=== PATIENT | male | born 1960 | race Caucasian/White ===

== ENCOUNTER 2024-01-29 18:40 | Inpatient (IN) | payer SELFPAY ==
[2024-01-29] VITALS (8 sets, daily range): BP systolic 140–148; BP diastolic 70–95; PULSE 70–81; RESP 20; TEMP 97.9–98.7; O2SAT 95
[~2024-01-29] VITALS: Ht 172.7 cm; Wt 87.1 kg
[2024-01-29] MEDS ORDERED: SODIUM BICARB 50MEQ 50ML VIAL 50 ML ONE (18:49)
[2024-01-29] MEDS ORDERED: IOHEXOL-350 50ML VIAL IV ONE (18:49)
[2024-01-29] MEDS ORDERED: BIVALIRUDIN 250 MG/VIAL IV ONE (18:49)
[2024-01-29] MEDS ORDERED: IOHEXOL 350 MG/ML 100ML INFUS..BTL IV ONE (18:49)
--- NOTE | 2024-01-29 18:49 | NUR ---
DR. BATRES IN TO SEE PT WITH CORPORATE SALES TRAINER
[2024-01-29] MEDS: HEParin 1,000 UNIT VIAL IVP SCH (18:50)
[2024-01-29] MEDS: TICAGrelor 90 MG TABLET PO SCH (18:50)
[2024-01-29] MEDS: HEParin 25,000 UNITS/250ML D5W 250 ML IV SCH ×2 (18:50→20:10)
[2024-01-29] MEDS ORDERED: HEParin 10,000 UNIT/10ML (1,000 UNIT/ML) VIAL ONE (18:50)
[2024-01-29] MEDS ORDERED: ATROPINE 0.4MG VIAL IJ ONE (18:50)
[2024-01-29] MEDS ORDERED: HEParin-NS 1,000 UNIT/500 ML 1,000 ML IV ONE (18:51)
[2024-01-29] MEDS ORDERED: ATROPINE 1MG SYG IVP ONE (18:51)
[2024-01-29] MEDS ORDERED: DOPamine HCL 400 MG/D5%-WATER 0 ML IV ONE (18:51)
[2024-01-29] MEDS ORDERED: NITROGLYCERIN 50MG VIAL ONE (18:52)
[2024-01-29] MEDS ORDERED: FENTanyl CITRate PF 50 MCG/1 ML 2ML VIAL ONE (18:52)
[2024-01-29] MEDS ORDERED: MIDAZOLAM HCL 1 MG/ML 2ML VIAL ONE (18:52)
[2024-01-29] MEDS ORDERED: niCARDIpine 25MG INJ IV ONE (18:54)
[2024-01-29 18:55] LABS: BASOPHILS # (AUTO) 0.11 K/uL (0.00-0.20); BASOPHILS % (AUTO) 0.6 % (0.0-5.0); EOSINOPHILS # (AUTO) 0.37 K/uL (0.00-0.70); EOSINOPHILS % (AUTO) 1.9 % (0.0-8.0); HEMATOCRIT 47.1 % (42-54); IMMATURE GRANULOCYTE ABSOLUTE 0.06 K/uL (0-1); LYMPHOCYTES # (AUTO) 2.8 K/uL (1.0-4.8); LYMPHOCYTES % (AUTO) 14.3 % (21.0-51.0); MEAN CORPUSCULAR HEMOGLOBIN 30.7 pg (27.0-33.0); MEAN CORPUSCULAR HGB CONC 34.6 g/dL (32.0-36.0); MEAN CORPUSCULAR VOLUME 88.7 fL (79-99); MONOCYTES % (AUTO) 5.3 % (3.0-13.0); NEUTROPHILS # (AUTO) 14.9 K/uL (1.8-7.7); NEUTROPHILS % (AUTO) 77.6 % (40.0-77.0); PLATELET COUNT (AUTO) 187 K/uL (130-400); RED BLOOD CELL COUNT(AUTO) 5.31 MIL/uL (4.50-6.20); RED CELL DISTRIBUTION WIDTH 12.5 % (11.0-15.5); WHITE BLOOD COUNT (AUTO) 19.2 K/uL (4.8-10.8)
[2024-01-29] MEDS: TICAGrelor 90 MG TABLET ONE (18:58)
--- NOTE | 2024-01-29 18:58 | NUR ---
PT TAKEN TO BOOK CLEANER
--- NOTE | 2024-01-29 18:59 | ERN ---
General Chief Complaint: Chest Pain Stated Complaint: CP Time Seen by MD: 18:42 Source: patient, EMS History of Present Illness Initial Comments PATIENT IS A 63-YEAR-OLD MALE COMING IN TO BE EVALUATED FOR CHEST PRESSURE CHEST PAIN. PER PATIENT THE CHEST PAIN HAS BEEN ONGOING FOR FIVE DAYS. PATIENT INITIALLY THOUGHT HE MIGHT HAVE REFLUX SINCE HE USUALLY PRESENTS WITH GASTRITIS. HE STATES THAT EARLIER TODAY HE PRESENTED WITH THE PAIN ABOU 5 HOURS PRIOR TO ARRIVING AT THE ER. PATIENT DID RECEIVE ASPIRIN AND SUBLINGUAL NITROGLYCERIN HIS PAIN LEVEL IN TRIAGE IT WAS TOO. Allergies: Coded Allergies: No Known Drug Allergies (Unverified Allergy, Unknown, 01/29/24) Past Medical History Past Medical History: Hypertension Past Surgical History: None ROS Dictation CONSTITUTIONAL: NO CHILLS, NO FEVER, NO WEAKNESS, DIAPHORESIS, NO MALAISE. HEAD/FACE: NO SIGNS OF TRAUMA. EENT: NO EYE PAIN, NO BLURRED VISION, NO TEARING, NO DOUBLE VISION, NO EAR PAIN, NO EAR DISCHARGE, NO NOSE PAIN, NO NASAL CONGESTION, NO THROAT PAIN, NO THROAT SWELLING, NO MOUTH PAIN. RESPIRATORY: NO COUGH, NO ORTHOPNEA, NO SOB, NO STRIDOR, NO WHEEZING. CARDIOVASCULAR: NO CHEST PAIN, NO EDEMA, NO PALPITATIONS, NO SYNCOPE. GASTROINTESTINAL/ABDOMINAL: NO ABDOMINAL PAIN, NO CONSTIPATION, NO DIARRHEA, NO NAUSEA, NO VOMITING. GENITOURINARY: NO ABNORMAL DISCHARGE, NO DYSURIA, NO FREQUENT URINATION, NO HEMATURIA. NO COMPLAINTS OF PAIN IN THE GENITALS. MUSCULOSKELETAL: NO BACK PAIN, NO GOUT, NO JOINT PAIN, NO JOINT SWELLING, NO MUSCLE PAIN, NO MUSCLE STIFFNESS, NO NECK PAIN. INTEGUMENTARY: NO CHANGE IN COLOR, NO CHANGE IN HAIR/NAILS, NO DRYNESS, NO LESION, NO LUMPS, NO RASH. NEUROLOGICAL/PSYCH: NO ANXIETY, NOT DEPRESSED, NO EMOTIONAL PROBLEM, NO HEADACHE, NO NUMBNESS, NO PRE-EXISTING DEFICIT, NO HISTORY OF SEIZURES, NO TREMORS, NO WEAKNESS. HEMATOLOGIC/LYMPHATIC: NOT ANEMIC, NO HISTORY OF BLOOD CLOTS, NO APPARENT BLEEDING, NO BRUISING, GLANDS NOT SWOLLEN. ALL SYSTEMS NEGATIVE, EXCEPT NOTED. Physical Exam Physical Exam Dictation VITAL SIGNS: REVIEWED. GENERAL APPEARANCE: ALERT, ORIENTED X3, ACUTE DISTRESS, OBESE. HEAD AND FACE: NON-TRAUMATIC. EYES: PERRL, PINK CONJUNCTIVAS, EYELID NO TRAUMA, ANTERIOR CHAMBER CLEAR. EARS: PINNAS INTACT AND NO SIGNS OF TRAUMA OR ERYTHEMA. EAR CANALS CLEAR AND NO DISCHARGE. TMS NO ERYTHEMA. NOSE: NO DISCHARGE, NO BLEEDING. OROPHARYNX: MOUTH NORMAL, TEETH NO CARIES, TONGUE PINK. PHARYNX CLEAR, NO ERYTHEMA. TONSILS NO EXUDATES, NO ABSCESSES NOTED. MUCOUS MEMBRANE MOIST. NECK: SUPPLE, NON-TENDER, NO THYROMEGALY, NO MASSES, NO JVD, NO BRUITS. BREAST: DEFERRED. CHEST: NO TENDERNESS, NO CREPITUS, NO PARADOXICAL MOVEMENT, NO RETRACTIONS. LUNGS: CLEAR, WELL-VENTILATED, SYMMETRIC, NO RALES, NO WHEEZING, NO RHONCHI, NO STRIDOR, GOOD BREATH SOUNDS BILATERALLY. HEART: REGULAR RATE, REGULAR RHYTHM, NO MURMUR, NO GALLOPS. VASCULAR: NO PERIPHERAL EDEMA. ABDOMEN: SOFT, POSITIVE BOWEL SOUNDS, NONDISTENDED, NO GUARDING, NONTENDER, NO REBOUND, NO MASSES NO HEPATOMEGALY, NO SPLENOMEGALY, NO YANG'S SIGN, NO HERNIAS. RECTAL: DEFERRED. GENITAL: DEFERRED. NEUROLOGICAL: NORMAL SPEECH, GROSS MOTOR FUNCTION INTACT, GROSS SENSORY FUNCTION INTACT. MUSCULOSKELETAL: NECK NONTENDER, FULL RANGE OF MOTION, BACK NONTENDER, FULL RANGE OF MOTION. EXTREMITIES: NONTENDER, FULL RANGE OF MOTION. SKIN: COLOR PINK, DRY, NO TURGOR, NO RASH, NO LACERATIONS, NO ABRASIONS, NO CONTUSIONS. LYMPHATICS: DEFERRED. Results Laboratory and Microbiology Lab and Micro Result Laboratory Tests Test 01/29/24 18:48 White Blood Count 19.2 K/uL (4.8-10.8) H Red Blood Count 5.31 MIL/uL (4.50-6.20) Hemoglobin 16.3 g/dL (14.0-18.0) Hematocrit 47.1 % (42-54) Mean Corpuscular Volume 88.7 fL (79-99) Mean Corpuscular Hemoglobin 30.7 pg (27.0-33.0) Mean Corpuscular Hemoglobin Concent 34.6 g/dL (32.0-36.0) Red Cell Distribution Width 12.5 % (11.0-15.5) Platelet Count 187 K/uL (130-400) Mean Platelet Volume 10.1 fL (7.5-10.5) Immature Granulocyte % (Auto) 0.3 % (0-1) Neutrophils (%) (Auto) 77.6 % (40.0-77.0) H Lymphocytes (%) (Auto) 14.3 % (21.0-51.0) L Monocytes (%) (Auto) 5.3 % (3.0-13.0) Eosinophils (%) (Auto) 1.9 % (0.0-8.0) Basophils (%) (Auto) 0.6 % (0.0-5.0) Neutrophils # (Auto) 14.9 K/uL (1.8-7.7) H Lymphocytes # (Auto) 2.8 K/uL (1.0-4.8) Monocytes # (Auto) 1.0 K/uL (0.1-1.0) Eosinophils # (Auto) 0.37 K/uL (0.00-0.70) Basophils # (Auto) 0.11 K/uL (0.00-0.20) Absolute Immature Granulocyte (auto 0.06 K/uL (0-1) Nucleated Red Blood Cells 0.0 % (0.0-0.19) Labs Reviewed?: Yes EKG/XRAY/US/CT/MRI EKG Comment 01/29/2024 TIME 6:40 P.M. VENTRICULAR RATE [address] WAVE ELEVATION V4 V5 V3, ST WAVE ELEVATION IN LEAD ONE AND AVL RECIPROCAL CHANGES IN AVR MDM MDM: DIFFERENTIAL DIAGNOSIS: STEMI, NSTEMI, CHEST PAIN RATIONALE: TESTS CONSIDERED AND ORDERED SECONDARY TO SHARED DECISION MAKING INCLUDE: LABS, ECG AND RADIOLOGY PREVIOUS OUTSIDE RECORDS REVIEWED: OLD ER VISITS. RISK OF COMPLICATION AND/OR MORBIDITY OR MORTALITY OF PATIENT MANAGEMENT: NONE MEDICATIONS-PER MEDICATION RECONCILIATION NEED FOR HOSPITALIZATION: PATIENT DOES MEET CRITERIA FOR HOSPITALIZATION. NEED FOR EMERGENCY MAJOR/MINOR SURGERY: NO THERE ARE NO SOCIAL CONCERNS WITH THIS PATIENT. PRESCRIPTION DRUG MANAGEMENT PRESCRIPTIONS WILL INCLUDE SYMPTOMATIC CARE PATIENT'S PRIOR EXTERNAL MEDICAL RECORDS FROM OTHER ER VISITS WERE REVIEWED BY ME INDICATED. PRIOR TESTING AND RESULTS FROM PREVIOUS VISITS WERE REVIEWED. PRIOR TESTS WERE TAKEN INTO ACCOUNT WITH MEDICAL DECISION MAKING AND RESOURCE UTILIZATION, INDEPENDENT HISTORIAN/HISTORIANS WERE USED TO OBTAIN COMPLETE MEDICAL HISTORY. I INDEPENDENTLY INTERPRETED THE TEST THAT WERE PERFORMED, RESULTS WERE REVIEWED BY ME AND CONSIDERED FINDINGS ON RADIOLOGY IF ORDERED. MEDICAL MANAGEMENT AND EXAMINATION INTERPRETATION DISCUSSIONS WERE HAD BY ME WITH OTHER QUALIFIED HEALTHCARE PROFESSIONALS INDICATED FOR THE PATIENT'S CARE. PATIENT IS A 63-YEAR-OLD MALE COMING IN TO BE EVALUATED FOR CHEST PRESSURE CHEST PAIN. UPON EVALUATION IN TRIAGE PATIENT DID PRESENT WITH A ST WAVE CHANGES IN EKG, A STEMI ALERT WAS CALLED. PATIENT WAS TAKEN TO THE DEMURRAGE AGENT WE WILL BE ADMITTED UNDER THE CARE OF HOSPITALIST GROUP FOR ONGOING MANAGEMENT AFTER DEMURRAGE AGENT. ED Course Orders Procedure Category Date Status Time Vital Signs Per CPOE 01/29/24 Transmitted Routine 18:41 B-Type Natriuretic LAB 01/29/24 In Process Peptide 18:41 Chest 1vw RAD 01/29/24 Logged 18:41 12 Lead Ekg Tracing- EKG 01/29/24 Logged Technical 18:41 Oxygen By Nc/Pulse Ox CPOE 01/29/24 Transmitted 18:41 Maintain Iv CPOE 01/29/24 Transmitted 18:41 Iv Insertion CPOE 01/29/24 Transmitted 18:41 Cardiac Monitoring CPOE 01/29/24 Transmitted 18:41 Pulse Oximetry With CPOE 01/29/24 Transmitted Vs And Prn 18:41 Cbc With Differential LAB 01/29/24 In Process 18:41 Activity: Br W/Brp CPOE 01/29/24 Transmitted With Assist 18:41 Creatine Kinase, Total LAB 01/29/24 In Process 18:41 Urinalysis Profile LAB 01/29/24 Logged 18:41 Troponin Poc Order LAB 01/29/24 Logged Only 18:41 Bedside Troponin-I LAB.ER 01/29/24 In Process (Poc) 18:41 Basic Metabolic Panel LAB 01/29/24 In Process 18:41 Heparin 5,000 Unit PHA 01/29/24 Complete Vial (Heparin 5,000 U 19:00 Heparin 25,000 PHA 01/29/24 In Process Units/250ml D5w 19:00 Nitroglycerin PHA 01/29/24 In Process 50mg/D5w 250ml 19:00 Vermin Exterminator Procedure CATH 01/29/24 Logged Request Sodium Bicarb 50meq PHA 01/29/24 Complete 50ml Vial (Sodium Bi 18:49 Bivalirudin (Angiomax) PHA 01/29/24 Complete 18:49 Iohexol (Omnipaque) PHA 01/29/24 Complete 18:49 Ticagrelor (Brilinta) PHA 01/29/24 Complete 18:49 Iohexol (Omnipaque) PHA 01/29/24 Complete 18:49 Atropine 0.4mg Vial PHA 01/29/24 Complete (Atropine 0.4mg Vial 18:50 Heparin 10,000 PHA 01/29/24 Complete Unit/10ml (Heparin 18:50 Dopamine Hcl 400 PHA 01/29/24 Complete Mg/D5%-Water (Intropin 18:51 Heparin-Ns 1,000 PHA 01/29/24 Complete Unit/500 Ml 18:51 Atropine 1mg Syg PHA 01/29/24 Complete (Atropine 1mg Syg) 18:51 Nitroglycerin 50mg PHA 01/29/24 Complete Vial (Tridil 50mg/10m 18:52 Fentanyl Citrate Pf PHA 01/29/24 Complete 0.05 Mg/Ml (Fentanyl 18:52 Midazolam Hcl (Versed) PHA 01/29/24 Complete 18:52 Ticagrelor (Brilinta) PHA 01/29/24 In Process 19:00 Heparin 1,000 Unit PHA 01/29/24 In Process Vial (Heparin 1,000 U 19:00 Initiate Heparin JANICE 01/29/24 In Process Treatment Pro 18:51 Partial LAB 01/29/24 Logged Thromboplastin Time 18:51 Heparin 5,000 Unit PHA 01/29/24 In Process Vial (Heparin 5,000 U 20:00 Heparin 25,000 PHA 01/29/24 In Process Units/250ml D5w 20:00 Heparin Protocol CPOE 01/29/24 Transmitted Monitoring 18:51 Nitroglycerin PHA 01/29/24 In Process 50mg/D5w 250ml 19:00 Nicardipine 25mg Inj PHA 01/29/24 Complete (Cardene 25mg Inj) 18:54 Current Medications Medications (Trade) Dose Ordered Sig/Ramila Route PRN Reason Start Time Stop Time Status Last Admin Dose Admin Atropine Sulfate (Atropine 0.4mg Vial) 0.4 mg STK-MED ONCE IJ 01/29/24 18:50 01/29/24 18:50 DC Atropine Sulfate (Atropine 1mg Syg) 1 mg STK-MED ONCE IVP 01/29/24 18:51 01/29/24 18:52 DC Bivalirudin (Angiomax) 250 mg STK-MED ONCE IV 01/29/24 18:49 01/29/24 18:50 DC Dopamine HCl/ Dextrose 250 ml @ As Directed STK-MED ONCE IV 01/29/24 18:51 01/29/24 18:51 DC Fentanyl Citrate (FENTanyl CITRate PF 50 MCG/ 1 ML 2ML VIAL) 100 mcg STK-MED ONCE .ROUTE 01/29/24 18:52 01/29/24 18:52 DC Heparin Sodium (Porcine) (HEParin 1,000 UNIT VIAL) 7,000 unit ONCE IVP 01/29/24 19:00 02/28/24 18:59 01/29/24 18:50 Heparin Sodium (Porcine) (HEParin 10,000 UNIT/10ML) 10,000 unit STK-MED ONCE .ROUTE 01/29/24 18:50 01/29/24 18:50 DC Heparin Sodium (Porcine) (HEParin 5,000 UNIT VIAL) *calculation based on ACTUAL B... AD PRN IV HEPARIN PROTOCOL 01/29/24 20:00 02/28/24 19:59 Heparin Sodium (Porcine) (HEParin 5,000 UNIT VIAL) 5,000 unit ONCE ONCE IV 01/29/24 19:00 01/29/24 19:01 DC Heparin Sodium/ Dextrose 250 ml @ 0 mls/hr PROTOCOL IV 01/29/24 19:00 02/28/24 18:59 01/29/24 18:50 Heparin Sodium/ Dextrose 250 ml @ 0 mls/hr Q6H IV 01/29/24 20:00 02/28/24 19:59 Heparin Sodium/ Sodium Chloride 1,000 ml @ As Directed STK-MED ONCE IV 01/29/24 18:51 01/29/24 18:51 DC Iohexol (Omnipaque) 50 ml STK-MED ONCE IV 01/29/24 18:49 01/29/24 18:50 DC Iohexol (Omnipaque) 35,000 mg STK-MED ONCE IV 01/29/24 18:49 01/29/24 18:50 DC Midazolam HCl (Versed) 2 mg STK-MED ONCE .ROUTE 01/29/24 18:52 01/29/24 18:53 DC Nicardipine HCl (CarDENE 25MG INJ) 25 mg STK-MED ONCE IV 01/29/24 18:54 01/29/24 18:54 DC Nitroglycerin (Tridil 50mg/ 10ml) 50 mg STK-MED ONCE .ROUTE 01/29/24 18:52 01/29/24 18:52 DC Nitroglycerin/ Dextrose 250 ml @ 0 mls/hr PROTOCOL IV 01/29/24 19:00 02/28/24 18:59 Nitroglycerin/ Dextrose 250 ml @ 0 mls/hr PROTOCOL IV 01/29/24 19:00 02/28/24 18:59 Sodium Bicarbonate 50 ml @ As Directed STK-MED ONCE .ROUTE 01/29/24 18:49 01/29/24 18:49 DC Ticagrelor (BRILinta) 90 mg STK-MED ONCE .ROUTE 01/29/24 18:49 01/29/24 18:50 DC Ticagrelor (BRILinta) 180 mg ONCE PO 01/29/24 19:00 02/28/24 18:59 01/29/24 18:50 Vital Signs Date Time Temp Pulse Resp B/P (MAP) Pulse Ox O2 Delivery O2 Flow Rate FiO2 01/29/24 18:42 98.1 83 18 151/92 94 Nasal Cannula 4.0 Critical Care Note Comments CRITICAL CARE PROCEDURE NOTE AUTHORIZED AND PERFORMED BY: ME TOTAL CRITICAL CARE TIME: APPROXIMATELY 36 MINUTES DUE TO A HIGH PROBABILITY OF CLINICALLY SIGNIFICANT, LIFE THREATENING DETERIORATION, THE PATIENT REQUIRED MY HIGHEST LEVEL OF PREPAREDNESS TO INTERVENE EMERGENTLY AND I PERSONALLY SPENT THIS CRITICAL CARE TIME DIRECTLY AND PERSONALLY MANAGING THE PATIENT. THIS CRITICAL CARE TIME INCLUDED OBTAINING A HISTORY; EXAMINING THE PATIENT; PULSE OXIMETRY; ORDERING AND REVIEW OF STUDIES; ARRANGING URGENT TREATMENT WITH DEVELOPMENT OF A MANAGEMENT PLAN; EVALUATION OF PATIENT'S RESPONSE TO TREATMENT; FREQUENT REASSESSMENT; AND, DISCUSSIONS WITH OTHER PROVIDERS. THIS CRITICAL CARE TIME WAS PERFORMED TO ASSESS AND MANAGE THE HIGH PROBABILITY OF IMMINENT, LIFE-THREATENING DETERIORATION THAT COULD RESULT IN MULTI-ORGAN FAILURE. IT WAS EXCLUSIVE OF SEPARATELY BILLABLE PROCEDURES AND TREATING OTHER PATIENTS AND TEACHING TIME. PLEASE SEE MDM SECTION AND THE REST OF THE NOTE FOR FURTHER INFORMATION ON PATIENT ASSESSMENT AND TREATMENT. DX & DISP Disposition: Inpatient Decision to Admit Time: 19:03 Departure Impression: Primary Impression: STEMI (ST elevation myocardial infarction) Condition: Stable Referrals: SELF,REFERRAL (PCP) BABAK TRAYLOR MD Jan 29, 2024 18:59
[2024-01-29] MEDS ORDERED: NITROGLYCERIN 50MG/D5W 250ML 250 BOT IV SCH ×2 (19:00)
[2024-01-29 19:04] LABS: CREATININE 1.1 mg/dL (0.5-1.3); POTASSIUM 4.4 mmol/L (3.5-5.1)
--- NOTE | 2024-01-29 19:13 | CONS ---
[facility] CARDIOLOGY CONSULTATION NOTE Date Patient Seen: Jan 29, 2024 Time of Visit: 19:10 Requesting Physician: [ ] Reason for Consultation: [ ] History of Present Illness: [Four two days the patient experienced what he thought was heartburn in the retrosternal area which did not respond well to antacids. Symptoms waxed and waned and last evening he became a little bit diaphoretic. He went to bed in the symptoms pass but the today they recurred. He presents to the ER 5 hours into a continuous episode of chest discomfort with ST elevation across the precordium and in the high lateral leads. ] Past Medical History: [Five years treatment for hypertension, denies all other illnesses ] Past Surgical History: [ None] Family History: [Noncontributory ] Social History: [Noncontributory nonsmoker ] Habits: [Never] smoker. [Denies] alcohol consumption. [Denies] illicit drug use Home Meds: [ ] Current Meds: [ ] Review of Systems: CONST: [No fever, fatigue, or weight changes. Admits diaphoresis with chest pain] EYES: [No recent vision problems.] ENT: [No congestion, ear pain, or sore throat.] C/V: [Admits chest pain, denies palpitations, or edema.] RESP: [No cough, congestion, wheezing or shortness of breath.] GI: [No abdominal pain, nausea, vomiting, constipation, or diarrhea. Past history of dyspepsia. No history of GI bleeding, polyps, or malignancies.] : [No incontinence or dysuria. Denies hematuria.] SKIN: [No rash.] NEURO: [No headache, focal numbness or weakness, dizziness, or seizures.] PSYCH: [No depression or anxiety.] HEME: [No abnormal bruising or bleeding.] LYMPH: [No swollen glands.] Physical Examination: GENERAL: [No acute distress.] HEAD: [Normal with no signs of head trauma.] EYES: [PERRLA, EOMI, conjunctiva and sclera normal.] ENT: [Hearing grossly intact, normal oropharynx.] NECK: [Supple without JVD. There is no tenderness, lymphadenopathy, or masses. No thyromegaly. Normal carotid upstrokes without bruits.] LUNGS: [Clear breath sounds bilaterally. There are right basilar rales one third of the way up the chest. No wheezes, or rhonchi.] HEART: [Normal rate and rhythm. Normal S1 and S2 without mumurs, gallop or rub.] VASC: [Peripheral pulses +2 bilaterally.] ABD: [Bowel sounds normal, soft, nontender, no masses, no organomegaly. No audible bruits.] : [Not examined] LYMPH: [No lymphadenopathy noted.] EXT: [No clubbing, cyanosis or edema.] SKIN: [No rashes or lesions noted.] NEURO: [Awake, alert, and oriented x3. No focal sensory or strength deficits noted.] Vital Signs (last 8hr) Date Time Temp Pulse Resp B/P (MAP) Pulse Ox O2 Delivery O2 Flow Rate FiO2 01/29/24 18:42 98.1 83 18 151/92 94 Nasal Cannula 4.0 Laboratory: [ ] Hematology Labs: Test 01/29/24 18:48 Range/Units White Blood Count 19.2 H 4.8-10.8 K/uL Red Blood Count 5.31 4.50-6.20 MIL/uL Hemoglobin 16.3 14.0-18.0 g/dL Hematocrit 47.1 42-54 % Mean Corpuscular Volume 88.7 79-99 fL Mean Corpuscular Hemoglobin 30.7 27.0-33.0 pg Mean Corpuscular Hemoglobin Concent 34.6 32.0-36.0 g/dL Red Cell Distribution Width 12.5 11.0-15.5 % Platelet Count 187 130-400 K/uL Mean Platelet Volume 10.1 7.5-10.5 fL Immature Granulocyte % (Auto) 0.3 0-1 % Neutrophils (%) (Auto) 77.6 H 40.0-77.0 % Lymphocytes (%) (Auto) 14.3 L 21.0-51.0 % Monocytes (%) (Auto) 5.3 3.0-13.0 % Eosinophils (%) (Auto) 1.9 0.0-8.0 % Basophils (%) (Auto) 0.6 0.0-5.0 % Neutrophils # (Auto) 14.9 H 1.8-7.7 K/uL Lymphocytes # (Auto) 2.8 1.0-4.8 K/uL Monocytes # (Auto) 1.0 0.1-1.0 K/uL Eosinophils # (Auto) 0.37 0.00-0.70 K/uL Basophils # (Auto) 0.11 0.00-0.20 K/uL Absolute Immature Granulocyte (auto 0.06 0-1 K/uL Nucleated Red Blood Cells 0.0 0.0-0.19 % Chemistry Labs: Test 01/29/24 18:48 Range/Units Sodium Level 146 H 136-145 mmol/L Potassium Level 4.4 3.5-5.1 mmol/L Chloride Level 106 101-111 mmol/L Carbon Dioxide Level 35 H 21-32 mmol/L Blood Urea Nitrogen 18 7-18 mg/dL Creatinine 1.1 0.5-1.3 mg/dL Glomerular Filtration Rate Calc 76 >90 mL/min Random Glucose 137 H 70-105 mg/dL Total Calcium 8.9 8.5-10.1 mg/dL Total Creatine Kinase 225 21-232 U/L Diagnostics / Radiology: [Copy/Paste Echos/Imaging Report here] Assessment: [Patient presents with a STEMI but has not developed Q-waves and should have emergent intervention. ] Plan: [Patient verbalizes understanding and acceptance of the risks and benefits of cardiac catheterization and coronary intervention. I have explained all details of the procedure to him. Plan immediate transfer to photonic laboratory technician for this procedure. ] COCO HERRERA MD Jan 29, 2024 19:13
[2024-01-29] MEDS ORDERED: IOHEXOL-350 75 ML VIAL IV ONE (19:42)
[2024-01-29 19:45] LABS: B-TYPE NATRIURETIC PEPTIDE 96 pg/mL (0-100)
[2024-01-29] MEDS ORDERED: HEParin 5,000 UNIT VIAL IV PRN (20:00)
--- NOTE | 2024-01-29 20:59 | PRN ---
CORONARY ARTERIOGRAM AND LAD BIFURCATION STENT WITH INTRAVASCULAR ULTRASOUND VALIDATION OF RESULTS INDICATION: ANTERIOR STEMI TECHNIQUE: Patient was brought to the lab on an emergent basis from the emergency room and sedated with 1 mg Versed and 50 mcg fentanyl. Under local anesthesia with 1% lidocaine the right radial artery was accessed and a six [place]i sheath was inserted. The patient had already received 7500 units aqueous heparin in the ER along with 325 mg aspirin and 180 mg Brilinta. A TIGG catheter was advanced over a guidewire and left and right coronary arteriogram were obtained in multiple projections. We then exchanged for a seven [place]i sheath and a seven [place]raini 4.5 cm Q catheter with which we engaged the left main, then wired the diagonal with a 300 cm BMW and the LAD with a 300 cm high torque floppy. The left anterior descending was dilated with a 3 cm Euphora and the diagonal and was dilated with a 2.5 mm Euphora. Results were inspected angiographically and the diagonal wire was removed. A three by 22 mm bre [place] drug-eluting stent was positioned in the LAD, spanning the ostium of the diagonal, and a high pressure 14 atmosphere inflation was administered. The diagonal was then re dilated with the 2.5 mm balloon and intravascular ultrasound inspection was undertaken, then the LAD was rewired and the stented segment was inspected. At the conclusion of the procedure the catheter and sheath were removed and hemostasis was obtained with a radial band with excellent hemostasis and no complications. Results: Angiography: This is a right-dominant system. The right coronary supplies the posterior descending, and accessory posterior descending, and two posterolateral. It is 4 mm diameter proximally and it is free of disease. The left main is 6 mm diameter and free of disease. The left anterior descending is notable for a 20 mm proximal segment of high- grade plaque that culminates in a 98% thrombotic unstable stenosis in the bifurcation of the LAD and diagonal, extending into the ostia of both distal branches. More distally the LAD is notable for a smooth lumen on the initial angiograms. The left circumflex is a very large vessel which supplies a small OM1/ramus intermedius which is nearby 90% at its ostium. Proximal to the 2nd obtuse marginal is an eccentric smooth 85% stenosis in a 5 mm segment of the vessel. This large branch bifurcates as it courses over the inferolateral wall and approaches the apex. Intervention: The proximal LAD disease is reduced to a 0% residual with smooth intima. The diagonal ostium is reduced to 0% residual with smooth intima. Intravascular ultrasound: Intravascular ultrasound confirms 3 mm lumen with excellent strut apposition in the LAD and 2.8 mm lumen in the ostium of the diagonal without dissection or residual stenosis. Conclusions: Successful treatment of anterior STEMI with acute intervention using drug- eluting stent on a bifurcation LAD lesion. There remains an eccentric 85% stenosis and a large circumflex branch. COCO HERRERA MD Jan 29, 2024 20:59
[2024-01-29] MEDS ORDERED: 0.9%NACL 1000ML 1,000 ML IV SCH (21:00)
--- NOTE | 2024-01-29 21:38 | HMCIMG ---
CHEST 1VW CLINICAL HISTORY: CHEST PAIN COMPARISON: None TECHNIQUE: Single view of the chest was obtained. FINDINGS: Lungs are clear. The cardiac size and mediastinum are unremarkable. The bony structures are within normal limits. IMPRESSION: No acute cardiopulmonary process identified.
[2024-01-29] MEDS: atorVAStatin 40 MG TABLET PO SCH (22:25)
--- NOTE | 2024-01-29 23:20 | HP ---
[facility] HISTORY AND PHYSICAL Date of Service: Jan 29, 2024 Time of Service: 23:19 PCP: Self-referral HISTORY OF PRESENT ILLNESS: This is a 63-year-old male with past medical history of hypertension presents to the ED via EMS for complaints of severe chest pain. Patient reports chest pain is all across his anterior chest associated with diaphoresis . Patient described chest pain as burning sensation all over his chest he said and it is on and off since five days ago and had been taking antacids which usually affo rded relief but today pain intensity has been gradually increasing so he decided to come to the ED for evaluation.Patient states his chest pain came again around 2 pm and never subsides since then .Patient reports he noticed he started getting tired easily for the past 2 weeks .Patient states he is active and does walking because his job requires it,he works in the [employer].Patient states he is supposed to be on antihypertensive meds but had stopped taking it for almost a year now because his BP has been normal he said.Patient had not seen a PCP for over a year.Patient also reports of smoking 1/2 pack of cigarette per day ,he said he quits 25 years ago and started smoking again last month and recently quit yesterday he said.Patient states he drinks 3 beer every 3 days and denies recreational drug use.Patient was taken to medical laboratory scientist for an emergent cardiac catheterization upon ER arrival Seen and examined patient in room 224 ,awake,alert and coherent.Patient states chest pain 3/10 pain level now and very tolerable he said.Patient underwent a successful treatment of anterior STEMI with acute intervention using a drug eluting stent on a bifurcation LAD lesion and there remains an eccentric 85% stenosis in the large circumflex branch.Patient had a right radial artery accessed .Right radial pulse and capillary refill are normal. Latest vital signs temperature 98.1, heart rate 83, blood pressure 151/92 saturation 94%. Labs: WBC 19 with negative left shift of neutrophils the rest of the CBC is unremarkable 7. Sodium 146, potassium 4.4, CO2 35, BUN18 creatinine 1.1 GFR 76 Glucose 137. Troponin 0.38. Troponin high since 1286. Chest x-ray result is unremarkable. We will continue to admit patient in PCCU REVIEW OF SYSTEMS CONSTITUTIONAL: Denies fevers, chills, or night sweats. No unintentional weight loss reported. NEUROLOGICAL: Denies headache, amaurosis fugax, motor weakness, sensory deficit, vertigo/spinning sensation, gait abnormalities, or tremors. ENT: No hearing loss, otalgia, otorrhea, rhinitis, rhinorrhea, hoarseness, or sore throat. CARDIOVASCULAR: Denies any exertional angina, dyspnea on exertion, orthopnea, paroxysmal nocturnal dyspnea, palpitations, life-threatening arrhythmias, claudication. PULMONARY: Denies any shortness of breath, cough, phlegm/sputum, hemoptysis, pleuritic chest pain. SLEEP: Denies morning headaches, daytime somnolence or napping. Denies difficulty falling asleep, staying asleep, waking from sleep. Denies knowledge of snoring. GASTROINTESTINAL: Denies any type of dysphagia to either liquids or solids. Denies nausea, vomiting, pyrosis, early satiety, abdominal pain, diarrhea, constipation, or changes in stool consistency or caliber. Denies coffee-ground emesis, hematemesis, hematochezia, or melanotic stools. GENITOURINARY: Denies frequency, urgency, nocturia, hematuria or incontinence (Storage/Irritative symptoms.) Low urinary stream, straining to void, urinary intermittency or hesitancy, splitting of the voiding stream, terminal dribbling. ENDOCRINOLOGIC: Denies polyuria, polydipsia, polyphagia or heat/cold intolerances. HEMATOLOGIC: Denies thrombophilia/previous clots, or coagulopathy/bleeding disorders. ONCOLOGIC: Denies personal history of malignancy. DERMATOLOGIC: Denies rashes or pruritus. PSYCHIATRIC: Denies any suicidal or homicidal ideation. Denies hallucinations. PAST MEDICAL HISTORY: [ Hypertension ] PAST SURGICAL HISTORY: [ Patient denies ] PAST SOCIAL HISTORY: [Patient lives alone. Patient used to smoke 1/2 pack every day and drinks three beers every three days denies recreational drug use ] FAMILY HISTORY: [ Noncontributory] Coded Allergies: No Known Drug Allergies (Unverified Allergy, Unknown, 01/29/24) PHYSICAL EXAM GENERAL APPEARANCE: The patient is awake, alert, and oriented, in no acute cardiopulmonary distress. NEUROLOGICAL: Cranial nerves II-XII grossly intact. Motor is 5/5 in bilateral upper and lower extremities proximal to distal. No sensory deficits. HEENT: Face is symmetric. Pupils are equal and reactive. Extraocular movements are intact. NECK: Supple. No JVD. No thyromegaly. No submental, submandibular, pre-/posta uricular, occipital or supraclavicular lymphadenopathy. CHEST: Normal chest expansion. No Telemetry. LUNGS: Absence of any rales, rhonchi or any wheezing. CARDIOVASCULAR: Regular. S1 and S2 normal. No appreciable rubs, murmurs or gallops. ABDOMEN: Soft, nontender, and nondistended. There is no rebound, voluntary guarding, or rigidity. : Deferred. No Falcon. EXTREMITIES: Non-edematous and not cyanotic. No clubbing. Good capillary refill. SKIN: No skin breakdown. Vital Sign (Last 24 Hours) 01/29/24 18:42 Temp 98.1 Pulse 83 Resp 18 B/P (MAP) 151/92 Pulse Ox 94 O2 Delivery Nasal Cannula O2 Flow Rate 4.0 LABS: Laboratory: Test 01/29/24 19:08 01/29/24 18:48 Range/Units Troponin I 0.38 H 0.00-0.05 ng/mL White Blood Count 19.2 H 4.8-10.8 K/uL Red Blood Count 5.31 4.50-6.20 MIL/uL Hemoglobin 16.3 14.0-18.0 g/dL Hematocrit 47.1 42-54 % Mean Corpuscular Volume 88.7 79-99 fL Mean Corpuscular Hemoglobin 30.7 27.0-33.0 pg Mean Corpuscular Hemoglobin Concent 34.6 32.0-36.0 g/dL Red Cell Distribution Width 12.5 11.0-15.5 % Platelet Count 187 130-400 K/uL Mean Platelet Volume 10.1 7.5-10.5 fL Immature Granulocyte % (Auto) 0.3 0-1 % Neutrophils (%) (Auto) 77.6 H 40.0-77.0 % Lymphocytes (%) (Auto) 14.3 L 21.0-51.0 % Monocytes (%) (Auto) 5.3 3.0-13.0 % Eosinophils (%) (Auto) 1.9 0.0-8.0 % Basophils (%) (Auto) 0.6 0.0-5.0 % Neutrophils # (Auto) 14.9 H 1.8-7.7 K/uL Lymphocytes # (Auto) 2.8 1.0-4.8 K/uL Monocytes # (Auto) 1.0 0.1-1.0 K/uL Eosinophils # (Auto) 0.37 0.00-0.70 K/uL Basophils # (Auto) 0.11 0.00-0.20 K/uL Absolute Immature Granulocyte (auto 0.06 0-1 K/uL Nucleated Red Blood Cells 0.0 0.0-0.19 % Activated Partial Thromboplast Time 25.3 L 26.3-35.5 SEC Sodium Level 146 H 136-145 mmol/L Potassium Level 4.4 3.5-5.1 mmol/L Chloride Level 106 101-111 mmol/L Carbon Dioxide Level 35 H 21-32 mmol/L Blood Urea Nitrogen 18 7-18 mg/dL Creatinine 1.1 0.5-1.3 mg/dL Glomerular Filtration Rate Calc 76 >90 mL/min Random Glucose 137 H 70-105 mg/dL Total Calcium 8.9 8.5-10.1 mg/dL Total Creatine Kinase 225 21-232 U/L Troponin I High Sensitivity 1286 *H 4-75 ng/L B-Type Natriuretic Peptide 96 0-100 pg/mL Current Medications Medications (Trade) Dose Ordered Sig/Ramila Route PRN Reason Start Time Stop Time Status Last Admin Dose Admin Aspirin (Aspirin 81mg Chew Tab) 81 mg DAILY PO 01/30/24 09:00 02/29/24 08:59 Atorvastatin Calcium (LIPItor 40MG) 40 mg HS PO 01/29/24 21:00 02/28/24 20:59 01/29/24 22:25 40 MG Heparin Sodium (Porcine) (HEParin 1,000 UNIT VIAL) 7,000 unit ONCE IVP 01/29/24 19:00 02/28/24 18:59 01/29/24 18:50 7,000 UNIT Heparin Sodium (Porcine) (HEParin 5,000 UNIT VIAL) *calculation based on ACTUAL B... AD PRN IV HEPARIN PROTOCOL 01/29/24 20:00 02/28/24 19:59 Heparin Sodium/ Dextrose 250 ml @ 0 mls/hr PROTOCOL IV 01/29/24 19:00 02/28/24 18:59 01/29/24 18:50 15 MLS/HR Heparin Sodium/ Dextrose 250 ml @ 0 mls/hr Q6H IV 01/29/24 20:00 02/28/24 19:59 Metoprolol Succinate (TopROL XL) 50 mg DAILY PO 01/30/24 09:00 02/29/24 08:59 Nitroglycerin/ Dextrose 250 ml @ 0 mls/hr PROTOCOL IV 01/29/24 19:00 02/28/24 18:59 Nitroglycerin/ Dextrose 250 ml @ 0 mls/hr PROTOCOL IV 01/29/24 19:00 02/28/24 18:59 Pantoprazole Sodium (PROTonix 40MG TAB) 40 mg DAILY PO 01/30/24 09:00 02/29/24 08:59 Sodium Chloride 1,000 ml @ 150 mls/hr AD IV 01/29/24 21:00 01/30/24 02:59 Ticagrelor (BRILinta) 90 mg BID PO 01/30/24 09:00 02/29/24 08:59 Ticagrelor (BRILinta) 180 mg ONCE PO 01/29/24 19:00 02/28/24 18:59 01/29/24 18:50 180 MG DIAGNOSTICS / RADIOLOGY: [ ] ASSESSMENT: Anterior STEMI POA Coronary artery disease status post cardiac stent Essential hypertension POA Hyperglycemia POA ( denies history of diabetes ) PLAN: We will admit patient in PCCU Patient is on heart healthy diet Patient started on mg, ticagrelor, Protonix, beta ludin and atorvastatin per Cardiology recommendation Patient is on NS at 150 mL/hour. We will replace electrolytes as needed per protocol We will add p.r.n. medication for pain fever nausea and vomiting We will check labs in a.m. F/U urinalysis result Top Screw closely following the patient Further mitigate recommendations to follow depending upon hospitalization course Case discussed with the attending MD and came up with the above treatment and plan of care ADVANCED CARE PLANNING 1. Which of the following were discussed? Hospice Care - No Therapeutic options - Yes Advance Directives - No Other discussions - 2. Discussed with who? Patient 3. Voluntary nature of this service was explained to the patient? Yes 4. Amount of time spent - ____25___ 5. Reviewed by Physician? (if this service was performed by NPP) Yes Patient seen and examined by me. Agree with note by INFORMATION TECHNOLOGY ADMINISTRATOR SEE ADDITIONAL ORDERS PER CHART DISCUSSED WITH NURSING STAFF SANAZ COHEN COATING AND BAKING OPERATOR Jan 29, 2024 23:20
[2024-01-30] VITALS (8 sets, daily range): BP systolic 115–143; BP diastolic 66–90; PULSE 66–89; RESP 16–20; TEMP 98.5–99.3; O2SAT 95–97
[2024-01-30] MEDS ORDERED: PoTASSium chl 10% ELIXIR 20MEQ 20 MEQ/15 ML UDCUP PO PRN (01:30)
[2024-01-30] MEDS ORDERED: PoTASSium chloRIDE 20MEQ/100ML 100 ML IV PRN (01:30)
[2024-01-30] MEDS ORDERED: PoTASSium chloRIDE 20MEQ ER 20 MEQ ERTAB PO PRN (01:30)
[2024-01-30] MEDS ORDERED: MAGNESIUM 2GM PREMIX 50ML 50 ML IV PRN (01:30)
[2024-01-30 03:51] LABS: HEMATOCRIT 44.6 % (42-54); MEAN CORPUSCULAR HEMOGLOBIN 30.1 pg (27.0-33.0); MEAN CORPUSCULAR HGB CONC 34.3 g/dL (32.0-36.0); MEAN CORPUSCULAR VOLUME 87.6 fL (79-99); RED BLOOD CELL COUNT(AUTO) 5.09 MIL/uL (4.50-6.20); RED CELL DISTRIBUTION WIDTH 12.6 % (11.0-15.5); WHITE BLOOD COUNT (AUTO) 16.9 K/uL (4.8-10.8)
[2024-01-30 04:14] LABS: HEMOGLOBIN A1C 5.4 % (4.0-6.0)
[2024-01-30 04:24] LABS: CREATININE 0.8 mg/dL (0.5-1.3); POTASSIUM 3.5 mmol/L (3.5-5.1)
--- NOTE | 2024-01-30 05:33 | NUR ---
CRITICAL LAB [facility] AND [facility] CRITICAL LABS REPORTED TO CODY RAMEY
--- NOTE | 2024-01-30 05:45 | NUR ---
PAGED DR HERRERA TO REPORT NEW TROPONIN LEVEL IS >[id number], PT IS S/P LEFT HEART CATHETERIZATION NO C/O CHEST PAIN, WILL CONT TO MONITOR
--- NOTE | 2024-01-30 06:00 | NUR ---
PENDING CALL BACK FROM DR HERRERA TO REPORT TROPONIN LEVEL S/P HEART CATH, LEVEL IS >[id number], NO C/O CHEST PAIN, VITAL SIGNS STABLE, WILL CONT TO MONITOR
--- NOTE | 2024-01-30 06:56 | PN ---
[facility] PROGRESS NOTE Date of Service: Jan 30, 2024 Time of Service: 06:56 SUBJECTIVE: [ ] The patient has been seen and examined earlier this morning during my rounding, comfortably in the PCU, remains on telemetry monitoring, hemodynamically stable, alert and oriented x3, denies dizziness, no headache, no chest pain, no shortness a breath, no nausea, no vomiting, no abdominal discomfort. No family members at bedside during my visit. Results of blood tests reviewed, discussed with the patient, all questions answered. REVIEW OF SYSTEMS CONSTITUTIONAL: Denies fevers, chills, or night sweats. No unintentional weight loss reported. NEUROLOGICAL: Denies headache, amaurosis fugax, motor weakness, sensory deficit, vertigo/spinning sensation, gait abnormalities, or tremors. ENT: No hearing loss, otalgia, otorrhea, rhinitis, rhinorrhea, hoarseness, or sore throat. CARDIOVASCULAR: Denies any exertional angina, dyspnea on exertion, orthopnea, paroxysmal nocturnal dyspnea, palpitations, life-threatening arrhythmias, claudication. PULMONARY: Denies any shortness of breath, cough, phlegm/sputum, hemoptysis, pleuritic chest pain. SLEEP: Denies morning headaches, daytime somnolence or napping. Denies difficulty falling asleep, staying asleep, waking from sleep. Denies knowledge of snoring. GASTROINTESTINAL: Denies any type of dysphagia to either liquids or solids. Denies nausea, vomiting, pyrosis, early satiety, abdominal pain, diarrhea, constipation, or changes in stool consistency or caliber. Denies coffee-ground emesis, hematemesis, hematochezia, or melanotic stools. GENITOURINARY: Denies frequency, urgency, nocturia, hematuria or incontinence (Storage/Irritative symptoms.) Low urinary stream, straining to void, urinary intermittency or hesitancy, splitting of the voiding stream, terminal dribbling. ENDOCRINOLOGIC: Denies polyuria, polydipsia, polyphagia or heat/cold intolerances. HEMATOLOGIC: Denies thrombophilia/previous clots, or coagulopathy/bleeding disorders. ONCOLOGIC: Denies personal history of malignancy. DERMATOLOGIC: Denies rashes or pruritus. PSYCHIATRIC: Denies any suicidal or homicidal ideation. Denies hallucinations. PHYSICAL EXAM GENERAL APPEARANCE: The patient is awake, alert, and oriented, in no acute cardiopulmonary distress. NEUROLOGICAL: Cranial nerves II-XII grossly intact. Motor is 5/5 in bilateral upper and lower extremities proximal to distal. No sensory deficits. HEENT: Face is symmetric. Pupils are equal and reactive. Extraocular movements are intact. NECK: Supple. No JVD. No thyromegaly. No submental, submandibular, pre- /postauricular, occipital or supraclavicular lymphadenopathy. CHEST: Normal chest expansion. No Telemetry. LUNGS: Absence of any rales, rhonchi or any wheezing. CARDIOVASCULAR: Regular. S1 and S2 normal. No appreciable rubs, murmurs or gallops. ABDOMEN: Soft, nontender, and nondistended. There is no rebound, voluntary guarding, or rigidity. : Deferred. No Falcon. EXTREMITIES: Non-edematous and not cyanotic. No clubbing. Good capillary refill. SKIN: No skin breakdown. Vital Signs (last 8hr) Date Time Temp Pulse Resp B/P (MAP) Pulse Ox O2 Delivery O2 Flow Rate FiO2 01/30/24 03:35 98.4 89 20 137/90 92 Room Air 01/30/24 00:35 98.6 66 20 143/90 96 Room Air 01/29/24 23:40 98.1 70 20 145/90 96 Room Air LABS: Laboratory: Test 01/30/24 03:10 01/29/24 19:08 01/29/24 18:48 Range/Units White Blood Count 16.9 H 4.8-10.8 K/uL Red Blood Count 5.09 4.50-6.20 MIL/uL Hemoglobin 15.3 14.0-18.0 g/dL Hematocrit 44.6 42-54 % Mean Corpuscular Volume 87.6 79-99 fL Mean Corpuscular Hemoglobin 30.1 27.0-33.0 pg Mean Corpuscular Hemoglobin Concent 34.3 32.0-36.0 g/dL Red Cell Distribution Width 12.6 11.0-15.5 % Platelet Count 195 130-400 K/uL Mean Platelet Volume 10.2 7.5-10.5 fL Nucleated Red Blood Cells 0.0 0.0-0.19 % Sodium Level 142 136-145 mmol/L Potassium Level 3.5 3.5-5.1 mmol/L Chloride Level 105 101-111 mmol/L Carbon Dioxide Level 28 21-32 mmol/L Blood Urea Nitrogen 12 7-18 mg/dL Creatinine 0.8 0.5-1.3 mg/dL Glomerular Filtration Rate Calc 101 >90 mL/min Random Glucose 109 H 70-105 mg/dL Hemoglobin A1c 5.4 4.0-6.0 % Estimated Average Glucose (eAG) 108 70-126 mg/dL Total Calcium 8.6 8.5-10.1 mg/dL Total Creatine Kinase 2945 #*H 21-232 U/L Troponin I High Sensitivity 4-75 ng/L Triglycerides Level 123 30-200 mg/dL Cholesterol Level 206 H <200 mg/dL LDL Cholesterol 133 H 0-99 mg/dL HDL Cholesterol 54 29-71 mg/dL Troponin I 0.38 H 0.00-0.05 ng/mL Immature Granulocyte % (Auto) 0.3 0-1 % Neutrophils (%) (Auto) 77.6 H 40.0-77.0 % Lymphocytes (%) (Auto) 14.3 L 21.0-51.0 % Monocytes (%) (Auto) 5.3 3.0-13.0 % Eosinophils (%) (Auto) 1.9 0.0-8.0 % Basophils (%) (Auto) 0.6 0.0-5.0 % Neutrophils # (Auto) 14.9 H 1.8-7.7 K/uL Lymphocytes # (Auto) 2.8 1.0-4.8 K/uL Monocytes # (Auto) 1.0 0.1-1.0 K/uL Eosinophils # (Auto) 0.37 0.00-0.70 K/uL Basophils # (Auto) 0.11 0.00-0.20 K/uL Absolute Immature Granulocyte (auto 0.06 0-1 K/uL Activated Partial Thromboplast Time 25.3 L 26.3-35.5 SEC B-Type Natriuretic Peptide 96 0-100 pg/mL Current Medications Medications (Trade) Dose Ordered Sig/Ramila Route PRN Reason Start Time Stop Time Status Last Admin Dose Admin Aspirin (Aspirin 81mg Chew Tab) 81 mg DAILY PO 01/30/24 09:00 02/29/24 08:59 Atorvastatin Calcium (LIPItor 40MG) 40 mg HS PO 01/29/24 21:00 02/28/24 20:59 01/29/24 22:25 40 MG Heparin Sodium (Porcine) (HEParin 1,000 UNIT VIAL) 7,000 unit ONCE IVP 01/29/24 19:00 02/28/24 18:59 01/29/24 18:50 7,000 UNIT Heparin Sodium (Porcine) (HEParin 5,000 UNIT VIAL) *calculation based on ACTUAL B... AD PRN IV HEPARIN PROTOCOL 01/29/24 20:00 02/28/24 19:59 Heparin Sodium/ Dextrose 250 ml @ 0 mls/hr PROTOCOL IV 01/29/24 19:00 02/28/24 18:59 01/29/24 18:50 15 MLS/HR Heparin Sodium/ Dextrose 250 ml @ 0 mls/hr Q6H IV 01/29/24 20:00 02/28/24 19:59 Magnesium Sulfate 50 ml @ 0 mls/hr PROTOCOL PRN IV OTHER [SEE ORDER COMMENTS] 01/30/24 01:30 02/29/24 01:29 Metoprolol Succinate (TopROL XL) 50 mg DAILY PO 01/30/24 09:00 02/29/24 08:59 Nitroglycerin/ Dextrose 250 ml @ 0 mls/hr PROTOCOL IV 01/29/24 19:00 02/28/24 18:59 Nitroglycerin/ Dextrose 250 ml @ 0 mls/hr PROTOCOL IV 01/29/24 19:00 02/28/24 18:59 Pantoprazole Sodium (PROTonix 40MG TAB) 40 mg DAILY PO 01/30/24 09:00 02/29/24 08:59 Potassium Chloride 100 ml @ 100 mls/hr AD PRN IV POTASSIUM PROTOCOL 01/30/24 01:30 02/29/24 01:29 Potassium Chloride (K-Dur/Klor-Con 20meq) 20 meq AD PRN PO POTASSIUM PROTOCOL 01/30/24 01:30 02/29/24 01:29 Potassium Chloride (KCl 10% Elixir 20meq/15ml) 20 meq AD PRN PO POTASSIUM PROTOCOL 01/30/24 01:30 02/29/24 01:29 Sodium Chloride 1,000 ml @ 150 mls/hr AD IV 01/29/24 21:00 01/30/24 02:59 DC Ticagrelor (BRILinta) 90 mg BID PO 01/30/24 09:00 02/29/24 08:59 Ticagrelor (BRILinta) 180 mg ONCE PO 01/29/24 19:00 02/28/24 18:59 01/29/24 18:50 180 MG DIAGNOSTICS / RADIOLOGY: [ ] ASSESSMENT: Anterior STEMI POA Coronary artery disease status post cardiac stent Essential hypertension POA Hyperglycemia POA ( denies history of diabetes ) PLAN: Remains admitted to the PCU Patient is on heart healthy diet Patient started on [id number] mg, ticagrelor, Protonix, beta ludin and atorvastatin per Cardiology recommendation Patient is on NS at 150 mL/hour. We will replace electrolytes as needed per protocol We will add p.r.n. medication for pain fever nausea and vomiting We will check labs in a.m. F/U urinalysis result Program Management Analyst closely following the patient Further mitigate recommendations to follow depending upon hospitalization course Disposition: Remains admitted to the PCU, continue playground monitor. Patient is status post left heart catheterization , with successful treatment of anterior STEMI with a acute intervention using drug-eluting stent on a bifurcation LAD lesion. There remains and eccentric 85% stenosis in the large circumflex branch. Continue current medical management and continue to follow Cardiology input and recommendations. Plan of action discussed with the patient who agreed understood the information provided. Total PCU time spent greater than 30 minutes. MINDY LUI MD Jan 30, 2024 06:56
[2024-01-30] MEDS: metOPROLol sucCINATE 50 MG TAB.SR.24H PO SCH (10:26)
[2024-01-30] MEDS: ASPIRIN 81MG CHEW TAB PO SCH (10:26)
[2024-01-30] MEDS: PANTOPrazole 40 MG TAB DR PO SCH (10:27)
--- NOTE | 2024-01-30 10:58 | HMCSR ---
APPROVED REPORT EXAM: Two-dimensional and M-mode echocardiogram with Doppler and color Doppler. Study Details: HTN , CP INDICATION ICD: Status post heart catherization. 2D Dimensions RVDd4.6 cmLVEF(%)40.8 (>50%)LVED Vol(simp.)134.0 mL IVSd1.3 (0.7-1.1cm)FS(%)19 %LVES Vol(simp.)52.7 mL LVDd3.6 (3.8-5.6cm)LA (2D)3.3 (1.6-4.0cm)LVEF(%, simp.)61 % PWd1.4 (0.7-1.1cm)Ao Root(2D)3.3 (2.0-3.7cm)LA ESV INDEX (4CH)11.90 mL/m2 IVSs1.2 cmLVOT diam2.0 (1.8-2.4cm)LA ESV INDEX (2CH)18.40 mL/m2 LVDs2.9 (2.5-4.0cm)LA ESV INDEX (BP)14.50 mL/m2 PWs1.7 cm Deformation Strain Apical 414.0 % Apical 214.0 % Apical 315.0 % Global Oqlwyg03.0 % M-Mode Dimensions EPSS0.8 cm LA (MM)4.5 (1.6-4.0cm) Ao Root(MM)3.3 (2.0-3.7cm) Aortic Valve AoV VTI0.3 mAo Mean GR4.0 mmHgLVOT VTI0.25 m GREGG (VMAX)3.0 cm2AVA (VTI) 3.0 cm2 Mitral Valve MV E Vmax59.7 cm/sDECEL Osjj985 ms MV A Vmax66.0 cm/sP 1/2 T43 ms E/A ratio0.9MVA (PHT)5.2 cm2 TDI E/E' Kkvszx33.5E/E' Gmnxyoi93.3 Medial E' Peak V5.20 cm/sLateral E' Peak V5.80 cm/s Pulmonary Valve PV VTI0.17 mPV Mean GR3 mmHg Tricuspid Valve RAP (EST) 8 mmHgRVSP8.0 mmHg Left Ventricle The left ventricle is normal size. Large hypokinetic wall motion abnormalitu involves entire septum. [place] is dyskinetic. There is normal left ventricular wall thickness. LVEF is calculated 61% but visua lly appears 50-55%. The left ventricular diastolic function is normal. Right Ventricle The right ventricle is moderately dilated. The right ventricular systolic function is normal. Atria The left atrium size is normal. The right atrium is moderately dilated. Aortic Valve The aortic valve is normal in structure. No aortic regurgitation is present. There is no aortic valvu lar stenosis. Mitral Valve The mitral valve is normal in structure. There is trace of mitral valve regurgitation noted. There is no mitral valve stenosis. Tricuspid Valve The tricuspid valve is normal in structure. There is no tricuspid valve regurgitation noted. Pulmonic Valve The pulmonary valve is normal in structure. There is no pulmonic valvular regurgitation. Great Vessels The aortic root is normal in size. The IVC is normal in size and collapses <50% with inspiration. Pericardium There is no pericardial effusion. Other Information Quality : Fair Conclusion LVEF is calculated 61% but visually appears 50-55%. Large hypokinetic wall motion abnormalitu involves entire septum. [place] is dyskinetic. The left ventricular diastolic function is normal.
--- NOTE | 2024-01-30 11:12 | PN ---
Anterior STEMI treated with LAD stent January 29, 2024 Residual 85% stenosis in left circumflex Extensive septal and apical stun but preserved EF Hypertension Patient offers no symptomatic complaints since the procedure yesterday. No catheterization complications. No JVD, no rales, nonlabored respiration, normal S1 and S2, no murmur, no hematoma or bleeding. Echocardiogram demonstrates low normal ejection fraction, calculated 61% but visually appears 50-55% with extensive septal hypokinesia and apical dyskinesia. Impression: Stable after STEMI, tolerating medications without complications. Plan: Given the extent of stun, probably best to perform circumflex intervention later as an outpatient. May be appropriate for discharge tomorrow. Follow up in my office within 3-4 weeks. Would not return to work in less than six weeks. Vitals/Labs Vital Signs Date Time Temp Pulse Resp B/P (MAP) Pulse Ox O2 Delivery O2 Flow Rate FiO2 01/30/24 07:15 98.8 80 16 124/88 98 Room Air 21 01/29/24 21:00 0 Laboratory Tests 01/29/24 18:48 01/30/24 03:10 Medications Current Medications Heparin Sodium (Porcine) 5,000 unit ONCE ONCE IV; Start 01/29/24 at 19:00; Stop 01/29/24 at 19:01; Status DC Heparin Sodium/ Dextrose 250 ml @ 0 mls/hr PROTOCOL IV Last administered on 01/29/24at 18:50; Start 01/29/24 at 19:00; Stop 02/28/24 at 18:59 Nitroglycerin/ Dextrose 250 ml @ 0 mls/hr PROTOCOL IV; Start 01/29/24 at 19:00; Stop 02/28/24 at 18:59 Sodium Bicarbonate 50 ml @ As Directed STK-MED ONCE .ROUTE; Start 01/29/24 at 18:49; Stop 01/29/24 at 18:49; Status DC Bivalirudin 250 mg STK-MED ONCE IV; Start 01/29/24 at 18:49; Stop 01/29/24 at 18:50; Status DC Iohexol 35,000 mg STK-MED ONCE IV; Start 01/29/24 at 18:49; Stop 01/29/24 at 18:50; Status DC Ticagrelor 90 mg STK-MED ONCE .ROUTE; Start 01/29/24 at 18:49; Stop 01/29/24 at 18:50; Status DC Iohexol 50 ml STK-MED ONCE IV; Start 01/29/24 at 18:49; Stop 01/29/24 at 18:50; Status DC Atropine Sulfate 0.4 mg STK-MED ONCE IJ; Start 01/29/24 at 18:50; Stop 01/29/24 at 18:50; Status DC Heparin Sodium (Porcine) 10,000 unit STK-MED ONCE .ROUTE; Start 01/29/24 at 18:50; Stop 01/29/24 at 18:50; Status DC Dopamine HCl/ Dextrose 0 ml @ As Directed STK-MED ONCE IV; Start 01/29/24 at 18:51; Stop 01/29/24 at 18:51; Status DC Heparin Sodium/ Sodium Chloride 1,000 ml @ As Directed STK-MED ONCE IV; Start 01/29/24 at 18:51; Stop 01/29/24 at 18:51; Status DC Atropine Sulfate 1 mg STK-MED ONCE IVP; Start 01/29/24 at 18:51; Stop 01/29/24 at 18:52; Status DC Nitroglycerin 50 mg STK-MED ONCE .ROUTE; Start 01/29/24 at 18:52; Stop 01/29/24 at 18:52; Status DC Fentanyl Citrate 100 mcg STK-MED ONCE .ROUTE; Start 01/29/24 at 18:52; Stop 01/29/24 at 18:52; Status DC Midazolam HCl 2 mg STK-MED ONCE .ROUTE; Start 01/29/24 at 18:52; Stop 01/29/24 at 18:53; Status DC Ticagrelor 180 mg ONCE PO Last administered on 01/29/24at 18:50; Start 01/29/24 at 19:00; Stop 02/28/24 at 18:59 Heparin Sodium (Porcine) 7,000 unit ONCE IVP Last administered on 01/29/24at 18:50; Start 01/29/24 at 19:00; Stop 02/28/24 at 18:59 Heparin Sodium (Porcine) *calculation based on ACTUAL B... AD PRN IV; Start 01/29/24 at 20:00; Stop 02/28/24 at 19:59 Heparin Sodium/ Dextrose 250 ml @ 0 mls/hr Q6H IV; Start 01/29/24 at 20:00; Stop 02/28/24 at 19:59 Nitroglycerin/ Dextrose 250 ml @ 0 mls/hr PROTOCOL IV; Start 01/29/24 at 19:00; Stop 02/28/24 at 18:59 Nicardipine HCl 25 mg STK-MED ONCE IV; Start 01/29/24 at 18:54; Stop 01/29/24 at 18:54; Status DC Iohexol 75 ml STK-MED ONCE IV; Start 01/29/24 at 19:42; Stop 01/29/24 at 19:43; Status DC Aspirin 81 mg DAILY PO Last administered on 01/30/24at 10:26; Start 01/30/24 at 09:00; Stop 02/29/24 at 08:59 Sodium Chloride 1,000 ml @ 150 mls/hr AD IV; Start 01/29/24 at 21:00; Stop 01/30/24 at 02:59; Status DC Pantoprazole Sodium 40 mg DAILY PO Last administered on 01/30/24at 10:27; Start 01/30/24 at 09:00; Stop 02/29/24 at 08:59 Ticagrelor 90 mg BID PO; Start 01/30/24 at 09:00; Stop 02/29/24 at 08:59 Metoprolol Succinate 50 mg DAILY PO Last administered on 01/30/24at 10:26; Start 01/30/24 at 09:00; Stop 02/29/24 at 08:59 Atorvastatin Calcium 40 mg HS PO Last administered on 01/29/24at 22:25; Start 01/29/24 at 21:00; Stop 02/28/24 at 20:59 Magnesium Sulfate 50 ml @ 0 mls/hr PROTOCOL PRN IV; Start 01/30/24 at 01:30; Stop 02/29/24 at 01:29 Potassium Chloride 100 ml @ 100 mls/hr AD PRN IV; Start 01/30/24 at 01:30; Stop 02/29/24 at 01:29 Potassium Chloride 20 meq AD PRN PO; Start 01/30/24 at 01:30; Stop 02/29/24 at 01:29 Potassium Chloride 20 meq AD PRN PO; Start 01/30/24 at 01:30; Stop 02/29/24 at 01:29 COCO HERRERA MD Jan 30, 2024 11:12
--- NOTE | 2024-01-30 14:42 | NUR ---
INITIAL/DCP HOME Met w pt this afternoon to discuss dcp. Pt admitted w STEMI. EC is his friend Zhanna Francisco [phone]. He lives at the [facility] in [place]. His insurance provider is [employer] (information faxed to registration). Pt lives alone. He is independent w ambulation and ADLs. He is able to drive where needed. His preferred pharmacy is [facility] on [address]. discharge goal is to return home. He mentions that one of his friends will be avail [place] [facility] [place] [facility]. Addendum: 01/31/24 at 1445 by HANG WETZEL CM Amended: Links added.
[2024-01-30] MEDS: HEParin 5,000 UNIT VIAL IV ONE (20:10)
[2024-01-30] MEDS: TICAGrelor 90 MG TABLET PO SCH (20:19)
[2024-01-31 00:52] VITALS: BP 114/75; PULSE 78; RESP 20; TEMP 98.8
[2024-01-31 04:06] VITALS: BP 114/70; PULSE 74; RESP 17; TEMP 99.1
[2024-01-31 05:19] LABS: HEMATOCRIT 43.3 % (42-54); MEAN CORPUSCULAR HEMOGLOBIN 30.2 pg (27.0-33.0); MEAN CORPUSCULAR HGB CONC 33.9 g/dL (32.0-36.0); MEAN CORPUSCULAR VOLUME 89.1 fL (79-99); RED BLOOD CELL COUNT(AUTO) 4.86 MIL/uL (4.50-6.20); RED CELL DISTRIBUTION WIDTH 12.6 % (11.0-15.5); WHITE BLOOD COUNT (AUTO) 14.1 K/uL (4.8-10.8)
[2024-01-31 06:11] LABS: BILIRUBIN,TOTAL 1.1 mg/dL (0.2-1.0); MAGNESIUM 1.8 mg/dL (1.80-2.40); POTASSIUM 3.6 mmol/L (3.5-5.1); TOTAL PROTEIN, SERUM 6.3 g/dL (6.0-8.3)
[2024-01-31 07:42] VITALS: BP_SYST 101; BP_SYST 108; BP_DIAS 70; BP_DIAS 75; PULSE 67; PULSE 68; RESP 18; TEMP 98.4; TEMP 98.6
--- NOTE | 2024-01-31 08:19 | PN ---
[facility] PROGRESS NOTE Date of Service: Jan 31, 2024 Time of Service: 08:19 SUBJECTIVE: [ ] The patient has been seen and examined earlier this morning during my rounding, comfortably in the PCU, remains on telemetry monitoring, hemodynamically stable, alert and oriented x3, denies dizziness, no headache, no chest pain, no shortness a breath, no nausea, no vomiting, no abdominal discomfort. No family members at bedside during my visit. Results of blood tests reviewed, discussed with the patient, all questions answered. 01/30 the patient is seen and examined during my rounding today, hemodynamically stable, alert oriented x3, no chest pain, no shortness a breath, no nausea, no vomiting. REVIEW OF SYSTEMS CONSTITUTIONAL: Denies fevers, chills, or night sweats. No unintentional weight loss reported. NEUROLOGICAL: Denies headache, amaurosis fugax, motor weakness, sensory deficit, vertigo/spinning sensation, gait abnormalities, or tremors. ENT: No hearing loss, otalgia, otorrhea, rhinitis, rhinorrhea, hoarseness, or sore throat. CARDIOVASCULAR: Denies any exertional angina, dyspnea on exertion, orthopnea, paroxysmal nocturnal dyspnea, palpitations, life-threatening arrhythmias, claudication. PULMONARY: Denies any shortness of breath, cough, phlegm/sputum, hemoptysis, pleuritic chest pain. SLEEP: Denies morning headaches, daytime somnolence or napping. Denies difficulty falling asleep, staying asleep, waking from sleep. Denies knowledge of snoring. GASTROINTESTINAL: Denies any type of dysphagia to either liquids or solids. Denies nausea, vomiting, pyrosis, early satiety, abdominal pain, diarrhea, constipation, or changes in stool consistency or caliber. Denies coffee-ground emesis, hematemesis, hematochezia, or melanotic stools. GENITOURINARY: Denies frequency, urgency, nocturia, hematuria or incontinence (Storage/Irritative symptoms.) Low urinary stream, straining to void, urinary intermittency or hesitancy, splitting of the voiding stream, terminal dribbling. ENDOCRINOLOGIC: Denies polyuria, polydipsia, polyphagia or heat/cold intolerances. HEMATOLOGIC: Denies thrombophilia/previous clots, or coagulopathy/bleeding disorders. ONCOLOGIC: Denies personal history of malignancy. DERMATOLOGIC: Denies rashes or pruritus. PSYCHIATRIC: Denies any suicidal or homicidal ideation. Denies hallucinations. PHYSICAL EXAM GENERAL APPEARANCE: The patient is awake, alert, and oriented, in no acute cardiopulmonary distress. NEUROLOGICAL: Cranial nerves II-XII grossly intact. Motor is 5/5 in bilateral upper and lower extremities proximal to distal. No sensory deficits. HEENT: Face is symmetric. Pupils are equal and reactive. Extraocular movements are intact. NECK: Supple. No JVD. No thyromegaly. No submental, submandibular, pre- /postauricular, occipital or supraclavicular lymphadenopathy. CHEST: Normal chest expansion. No Telemetry. LUNGS: Absence of any rales, rhonchi or any wheezing. CARDIOVASCULAR: Regular. S1 and S2 normal. No appreciable rubs, murmurs or gallops. ABDOMEN: Soft, nontender, and nondistended. There is no rebound, voluntary guarding, or rigidity. : Deferred. No Falcon. EXTREMITIES: Non-edematous and not cyanotic. No clubbing. Good capillary refill. SKIN: No skin breakdown. Vital Signs (last 8hr) Date Time Temp Pulse Resp B/P (MAP) Pulse Ox O2 Delivery O2 Flow Rate FiO2 01/31/24 04:06 99.1 74 17 114/70 93 Room Air 01/31/24 00:52 98.8 78 20 114/75 95 Room Air LABS: Laboratory: Test 01/31/24 05:11 01/30/24 03:10 01/29/24 19:08 01/29/24 18:48 Range/Units White Blood Count 14.1 H 4.8-10.8 K/uL Red Blood Count 4.86 4.50-6.20 MIL/uL Hemoglobin 14.7 14.0-18.0 g/dL Hematocrit 43.3 42-54 % Mean Corpuscular Volume 89.1 79-99 fL Mean Corpuscular Hemoglobin 30.2 27.0-33.0 pg Mean Corpuscular Hemoglobin Concent 33.9 32.0-36.0 g/dL Red Cell Distribution Width 12.6 11.0-15.5 % Platelet Count 163 130-400 K/uL Mean Platelet Volume 10.3 7.5-10.5 fL Nucleated Red Blood Cells 0.0 0.0-0.19 % Sodium Level 144 136-145 mmol/L Potassium Level 3.6 3.5-5.1 mmol/L Chloride Level 108 101-111 mmol/L Carbon Dioxide Level 26 21-32 mmol/L Blood Urea Nitrogen 13 7-18 mg/dL Creatinine 1.0 0.5-1.3 mg/dL Glomerular Filtration Rate Calc 86 >90 mL/min Random Glucose 102 70-105 mg/dL Total Calcium 8.2 L 8.5-10.1 mg/dL Magnesium Level 1.80 1.80-2.40 mg/dL Total Bilirubin 1.1 H 0.2-1.0 mg/dL Aspartate Amino Transf (AST/SGOT) 162 H 10-37 U/L Alanine Aminotransferase (ALT/SGPT) 53 12-78 U/L Alkaline Phosphatase 47 L 50-136 U/L Total Creatine Kinase 760 #*H 21-232 U/L Total Protein 6.3 6.0-8.3 g/dL Albumin 3.0 L 3.5-5.0 g/dL Hemoglobin A1c 5.4 4.0-6.0 % Estimated Average Glucose (eAG) 108 70-126 mg/dL Troponin I High Sensitivity 4-75 ng/L Triglycerides Level 123 30-200 mg/dL Cholesterol Level 206 H <200 mg/dL LDL Cholesterol 133 H 0-99 mg/dL HDL Cholesterol 54 29-71 mg/dL Troponin I 0.38 H 0.00-0.05 ng/mL Immature Granulocyte % (Auto) 0.3 0-1 % Neutrophils (%) (Auto) 77.6 H 40.0-77.0 % Lymphocytes (%) (Auto) 14.3 L 21.0-51.0 % Monocytes (%) (Auto) 5.3 3.0-13.0 % Eosinophils (%) (Auto) 1.9 0.0-8.0 % Basophils (%) (Auto) 0.6 0.0-5.0 % Neutrophils # (Auto) 14.9 H 1.8-7.7 K/uL Lymphocytes # (Auto) 2.8 1.0-4.8 K/uL Monocytes # (Auto) 1.0 0.1-1.0 K/uL Eosinophils # (Auto) 0.37 0.00-0.70 K/uL Basophils # (Auto) 0.11 0.00-0.20 K/uL Absolute Immature Granulocyte (auto 0.06 0-1 K/uL Activated Partial Thromboplast Time 25.3 L 26.3-35.5 SEC B-Type Natriuretic Peptide 96 0-100 pg/mL Current Medications Medications (Trade) Dose Ordered Sig/Ramila Route PRN Reason Start Time Stop Time Status Last Admin Dose Admin Aspirin (Aspirin 81mg Chew Tab) 81 mg DAILY PO 01/30/24 09:00 02/29/24 08:59 01/30/24 10:26 81 MG Atorvastatin Calcium (LIPItor 40MG) 40 mg HS PO 01/29/24 21:00 02/28/24 20:59 01/30/24 20:50 40 MG Heparin Sodium (Porcine) (HEParin 1,000 UNIT VIAL) 7,000 unit ONCE IVP 01/29/24 19:00 02/28/24 18:59 01/29/24 18:50 7,000 UNIT Heparin Sodium (Porcine) (HEParin 5,000 UNIT VIAL) *calculation based on ACTUAL B... AD PRN IV HEPARIN PROTOCOL 01/29/24 20:00 02/28/24 19:59 Heparin Sodium/ Dextrose 250 ml @ 0 mls/hr PROTOCOL IV 01/29/24 19:00 02/28/24 18:59 01/29/24 18:50 15 MLS/HR Heparin Sodium/ Dextrose 250 ml @ 0 mls/hr Q6H IV 01/29/24 20:00 02/28/24 19:59 Magnesium Sulfate 50 ml @ 0 mls/hr PROTOCOL PRN IV OTHER [SEE ORDER COMMENTS] 01/30/24 01:30 02/29/24 01:29 Metoprolol Succinate (TopROL XL) 50 mg DAILY PO 01/30/24 09:00 02/29/24 08:59 01/30/24 10:26 50 MG Nitroglycerin/ Dextrose 250 ml @ 0 mls/hr PROTOCOL IV 01/29/24 19:00 02/28/24 18:59 Nitroglycerin/ Dextrose 250 ml @ 0 mls/hr PROTOCOL IV 01/29/24 19:00 02/28/24 18:59 Pantoprazole Sodium (PROTonix 40MG TAB) 40 mg DAILY PO 01/30/24 09:00 02/29/24 08:59 01/30/24 10:27 40 MG Potassium Chloride 100 ml @ 100 mls/hr AD PRN IV POTASSIUM PROTOCOL 01/30/24 01:30 02/29/24 01:29 Potassium Chloride (K-Dur/Klor-Con 20meq) 20 meq AD PRN PO POTASSIUM PROTOCOL 01/30/24 01:30 02/29/24 01:29 Potassium Chloride (KCl 10% Elixir 20meq/15ml) 20 meq AD PRN PO POTASSIUM PROTOCOL 01/30/24 01:30 02/29/24 01:29 Sodium Chloride 1,000 ml @ 150 mls/hr AD IV 01/29/24 21:00 01/30/24 02:59 DC Ticagrelor (BRILinta) 90 mg BID PO 01/30/24 09:00 02/29/24 08:59 01/30/24 20:50 90 MG Ticagrelor (BRILinta) 180 mg ONCE PO 01/29/24 19:00 02/28/24 18:59 01/29/24 18:50 180 MG DIAGNOSTICS / RADIOLOGY: [ ] ASSESSMENT: Anterior STEMI POA Coronary artery disease status post cardiac stent Essential hypertension POA Hyperglycemia POA ( denies history of diabetes ) PLAN: Remains admitted to the PCU Patient is on heart healthy diet Patient started on [id number] mg, ticagrelor, Protonix, beta ludin and atorvastatin per Cardiology recommendation Patient is on NS at 150 mL/hour. We will replace electrolytes as needed per protocol We will add p.r.n. medication for pain fever nausea and vomiting We will check labs in a.m. F/U urinalysis result Deaf/Hard Of Hearing Specialist closely following the patient Further mitigate recommendations to follow depending upon hospitalization course Disposition: The patient to be discharged home today, please refer to final summary. MINDY LUI MD Jan 31, 2024 08:19
[2024-01-31] MEDS: PoTASSium chloRIDE 20MEQ ER 20 MEQ ERTAB PO ONE (09:01)
[2024-01-31] MEDS ORDERED: ASPI-1005 PO (09:52)
[2024-01-31] MEDS ORDERED: METO50TA9 PO (09:52)
[2024-01-31] MEDS ORDERED: NITR0.4T50 SL (09:52)
[2024-01-31] MEDS ORDERED: TICA90TA PO (09:52)
[2024-01-31] MEDS ORDERED: ATOR40TA69 PO (09:52)
--- NOTE | 2024-01-31 10:26 | DS ---
Discharge Summary Hospital Course Summary: The patient initially admitted to the hospital January 29, 2024 with the following history of the present illness: This is a 63-year-old male with past medical history of hypertension presented to the ED via EMS for complaints of severe chest pain x few days. Patient reported chest pain across his anterior chest associated with diaphoresis . Upon arrival to the emergency room, patient with a positive troponins. Patient was taken to cathode builder for an emergent cardiac catheterization upon ER arrival Patient underwent successful treatment of anterior STEMI with acute intervention using a drug eluting stent on a bifurcation LAD lesion and there remains an eccentric 85% stenosis in the large circumflex branch. Latest vital signs temperature 98.1, heart rate 83, blood pressure 151/92 saturation 94%. Labs: WBC 19 with negative left shift of neutrophils the rest of the CBC is unremarkable 7. Sodium 146, potassium 4.4, CO2 35, BUN18 creatinine 1.1 GFR 76 Glucose 137. Troponin 0.38. Troponin high since 1286. Chest x-ray result is unremarkable. Patient admitted to the PCU, kept on heparin drip, today he is hemodynamically stable, alert oriented three, no chest pain, shortness shortness for breath, nausea, no vomiting, no abdominal discomfort. Per Cardiology given the extent of stone, probably best to perform circumflex intervention later as an outpatient, okay for the patient to be discharged home, to follow up in the office within three to 4 weeks. 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 Patient agreed with plan and understood the information provided. Time spent arranging discharge: 31-60 minutes MINDY LUI MD Jan 31, 2024 10:26
[2024-01-31 11:56] VITALS: BP 101/75; PULSE 67; RESP 18; TEMP 98.6
--- NOTE | 2024-01-31 13:02 | PN ---
This is a 63-year-old male with a history of hypertension. He was admitted 01/29/2024 secondary to an anterior wall STEMI. He underwent left heart catheterization 01/29/2024 which demonstrated high-grade 98% thrombotic stenosis of the proximal LAD status post stent placement. He has residual 85% stenosis of the left circumflex. He underwent echocardiogram 01/30/2024 which demonstrates an ejection fraction of 50-55% with large hypokinetic wall motion abnormalities involving the entire septum, dyskinesis of the apex, normal diastolic function and normal pericardium. He is currently in sinus rhythm with heart rates in the 70s. He has resolving ST segment elevation. He denies chest pain, shortness breath, dizziness or weakness. He states that he has been feeling well since the procedure. On exam, he is in no acute distress, regular rate and rhythm, lungs are clear to auscultation bilaterally, no lower extremity edema is noted. Assessment: 1. Anterior wall STEMI status post PCI to the LAD. 2. Residual 85% stenosis of the left circumflex. 3. Low normal ejection fraction with extensive septal hypokinesis and apical dyskinesis. 4. Hypertension. Plan: 1. He presented with an anterior wall STEMI status post stenting of the LAD. He has residual 85% stenosis of the left circumflex. Continue aspirin 81 mg once daily, ticagrelor 90 mg twice daily, atorvastatin 40 mg once daily and metoprolol succinate 50 mg once daily. Dual antiplatelet therapy for a minimum of one year. 2. Per Dr. Crawford, he will have a staged intervention to the left circumflex. 3. He is cleared to be discharged from a cardiology standpoint. Vitals/Labs Vital Signs Date Time Temp Pulse Resp B/P (MAP) Pulse Ox O2 Delivery O2 Flow Rate FiO2 01/31/24 11:56 98.6 67 18 101/75 97 Room Air 01/30/24 20:00 0 21 Laboratory Tests 01/31/24 05:11 NICK FELICIANO Jan 31, 2024 13:02
--- NOTE | 2024-01-31 14:21 | NUR ---
DISCHARGE D/C INSTRUCTIONS GIVEN TO PT AND FRIEND VERBALIZED UNDERSTANDING. IV AND TELE PACK REMOVED. PT WAS TAKEN TO PRIVATE CAR.
--- NOTE | 2024-01-31 17:12 | EKG ---
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
--- NOTE | 2024-01-31 17:13 | EKG ---
[facility] Test Date: 2024-01-29 Test Time: 21:50:12 Pat Name: SAUD SKY Department: [facility] Room: 224 1 Gender: M Enterprise Application Administrator: SRINIVAS : 1960 Requested By: YEYO HERRERA Order Number: [id number] Reading MD: Yeyo Herrera Measurements Intervals [place] Rate: 71 P: 6 ID: [id number] QRS: 31 QRSD: 86 T: 61 QT: 382 QTc: 415 Interpretive Statements Normal sinus rhythm Septal infarct , age undetermined Compared to ECG 01/29/2024 18:40:07 ST (T wave) deviation no longer present Myocardial infarct finding still present Electronically Signed On 01-31-2024 17:39:26 BICYCLE REPAIR TECHNICIAN by Yeyo Herrera Please click the below link to view image of tracing.
--- NOTE | 2024-01-31 17:16 | EKG ---
[facility] Test Date: 2024-01-30 Test Time: 06:14:11 Pat Name: SAUD SKY Department: [facility] Room: 224 1 Gender: M Property Management Intern: SRINIVAS : 1960 Requested By: YEYO HERRERA Order Number: [id number] Reading MD: Yeyo Herrera Measurements Intervals [place] Rate: 79 P: 46 [place]: 122 QRS: 47 QRSD: 80 T: 73 QT: 354 QTc: 405 Interpretive Statements Normal sinus rhythm Septal infarct , age undetermined Lateral injury pattern ACUTE [place] / STEMI Compared to ECG 01/29/2024 21:50:12 No significant changes Electronically Signed On 01-31-2024 17:40:33 BIOSTATISTICS DIRECTOR by Yeyo Herrera Please click the below link to view image of tracing.
== END 2024-01-31 14:40 | disposition home or self-care (01) | DRG 322 ==
LOC: EDH 18:40 → 2BH 18:41 → EDH 19:10 → 2DH 21:25
PROVIDERS: ADMIT Internal Medicine; ATTEND Internal Medicine
PROC: B2101ZZ Fluoroscopy of Single Coronary Artery using Low Osmolar Contrast (ICD-10-PCS; principal; 2024-01-29)
PROC: 0270346 Dilation of Coronary Artery, One Artery, Bifurcation, with Drug-eluting Intraluminal Device, Percutaneous Approach (ICD-10-PCS; 2024-01-29)
PROC: 4A023N7 Measurement of Cardiac Sampling and Pressure, Left Heart, Percutaneous Approach (ICD-10-PCS; 2024-01-29)
DX: I21.09 ST elevation (STEMI) myocardial infarction involving other coronary artery of anterior wall (principal); I25.10 Atherosclerotic heart disease of native coronary artery without angina pectoris; I10 Essential (primary) hypertension; F17.210 Nicotine dependence, cigarettes, uncomplicated; R73.9 Hyperglycemia, unspecified; Z95.5 Presence of coronary angioplasty implant and graft; Z79.899 Other long term (current) drug therapy
CPT/HCPCS: 36415; 71045; 80048; 80053; 80061; 82550; 83036; 83735; 83880; 84484; 85025; 85027; 85347; 85730; 92921; 92978; 92979; 93005; 93306; 93356; 93454; 99156; 99157; C1769; C1887; C1894; C9600; G0378; J0461; J0583; J1265; J1644; J2250; J3010; J3490; Q9967; A4649; C1725; C1753; C1874; Q9965